=== PATIENT | female | born 2000 | race Two or more races ===

== ENCOUNTER 2022-07-19 12:42 | Emergency (ER) | payer OTHER ==
[~2022-07-19] VITALS: Ht 170.2 cm; Wt 63.5 kg
[2022-07-19] MEDS ORDERED: HYDROXYCHLOROQ200 MG PO (13:24)
[2022-07-19] MEDS ORDERED: MYCOPHENOLATE500 MG PO (13:24)
[2022-07-19] MEDS ORDERED: RAYOS5 MG PO (13:25)
[2022-07-19] MEDS ORDERED: BENLYSTA200 MG/1 M SQ (13:25)
== END 2022-07-20 00:05 | disposition home or self-care (01) ==
LOC: ER 12:42
DX: M32.9 Systemic lupus erythematosus, unspecified (principal); B34.9 Viral infection, unspecified; Z20.822 Contact with and (suspected) exposure to COVID-19

== ENCOUNTER 2023-04-11 09:01 | Emergency (ER) | payer OTHER ==
[~2023-04-11] VITALS: Ht 170.2 cm; Wt 61.7 kg
[~2023-04-11 09:01] MED LIST: BENLYSTA200 MG/1 M SQ; HYDROXYCHLOROQ200 MG PO; MYCOPHENOLATE500 MG PO; RAYOS5 MG PO
== END 2023-04-11 12:27 | disposition home or self-care (01) ==
LOC: ER 09:02
DX: L27.2 Dermatitis due to ingested food (principal)

== ENCOUNTER 2023-06-21 16:46 | Emergency (ER) | payer OTHER ==
[~2023-06-21] VITALS: Ht 170.2 cm; Wt 61.2 kg
[2023-06-21 19:25] LABS: HEMATOCRIT 33.5 % (36.0-45.00); HEMOGLOBIN 11.2 g/dL (12.0-15.00); MEAN CELL VOLUME 86.8 fL (80.00-100.00); MEAN CORPUSCULAR HGB CONC 33.4 g/dl (32.0-36.0); PLATELET COUNT 375 K/uL (150-450); RED BLOOD COUNT 3.86 M/uL (4.00-6.00); RED CELL DISTRIBUTION WIDTH 18.3 % (11.5-14.5)
[2023-06-21 19:28] LABS: URINE APPEARANCE Clear; URINE BILIRRUBIN Negative (NEGATIVE); URINE BLOOD Negative; URINE COLOR Yellow; URINE GLUCOSE Negative (NEGATIVE); URINE LEUKOCYTE Moderate; URINE NITRATE Negative; URINE PROTEIN Trace (NEGATIVE)
[2023-06-21 19:29] LABS: URINE EPITHELIAL CELLS 22.8 uL (0.0-38.8); URINE RBC 10.2 uL (0.0-20.8); URINE WBC 322.9 uL (0.0-23.2)
[2023-06-21 19:40] LABS: ALBUMIN 3.6 gm/dL (3.4-5.0); BILIRUBIN TOTAL 0.32 mg/dL (0.3-1.2); CALCIUM 9.1 mg/dL (8.5-10.1); CREATININE SERUM 0.62 mg/dL (0.55-1.02); GFR 119.28; GLOBULINA 4.6 G/DL (2.4-3.5); POTASSIUM 3.94 mEq/L (3.5-5.1); TOTAL PROTEIN 8.2 gm/dL (6.4-8.2)
== END 2023-06-21 21:25 | disposition home or self-care (01) ==
LOC: ER 16:46
PROVIDERS: General Practice
DX: R55 Syncope and collapse (principal)

== ENCOUNTER 2023-07-30 14:03 | Inpatient (IN) | payer OTHER ==
[~2023-07-30] VITALS: Ht 152.4 cm; Wt 61.2 kg
[2023-07-30 16:22] LABS: PH,URINE 7.5 (5.0-8.0); URINE APPEARANCE Cloudy; URINE BILIRRUBIN Negative (NEGATIVE); URINE BLOOD Negative; URINE COLOR Yellow; URINE GLUCOSE Negative (NEGATIVE); URINE LEUKOCYTE Large; URINE NITRATE Negative
[2023-07-30 16:25] LABS: URINE BACTERIA 7150.2 uL (0.0-1933); URINE EPITHELIAL CELLS 48.5 uL (0.0-38.8); URINE RBC 55.1 uL (0.0-20.8)
[2023-07-30 16:26] LABS: HEMATOCRIT 34.6 % (36.0-45.00); HEMOGLOBIN 11.4 g/dL (12.0-15.00); MEAN CELL VOLUME 82.8 fL (80.00-100.00); MEAN CORPUSCULAR HEMOGLOBIN 27.3 pg (27.00-32.0); PLATELET COUNT 409 K/uL (150-450); RED BLOOD COUNT 4.18 M/uL (4.00-6.00); RED CELL DISTRIBUTION WIDTH 15.2 % (11.5-14.5)
[2023-07-30 16:35] LABS: CALCIUM 8.9 mg/dL (8.5-10.1); CREATININE SERUM 0.65 mg/dL (0.55-1.02); GFR 112.95
[2023-07-30 16:54] LABS: URINE PROTEIN 100 (NEGATIVE)
[2023-07-30 17:01] LABS: ERYTHROCYTE SEDIMENTATION RATE 80 mm/hr
[2023-07-31 01:15] LABS: LDH 197 U/L (84-246); PHOSPHOKINASE CREATININE 29 U/L (26-192)
[2023-07-31 06:06] LABS: HEMATOCRIT 32.5 % (36.0-45.00); HEMOGLOBIN 10.9 g/dL (12.0-15.00); MEAN CORPUSCULAR HEMOGLOBIN 28.1 pg (27.00-32.0); MEAN CORPUSCULAR HGB CONC 33.5 g/dl (32.0-36.0); PLATELET COUNT 343 K/uL (150-450); RED BLOOD COUNT 3.87 M/uL (4.00-6.00); RED CELL DISTRIBUTION WIDTH 14.8 % (11.5-14.5)
[2023-07-31 06:17] LABS: PARTIAL THROMBOPLASTIN TIME 28.4 SECONDS (22.0-34.0); PROTHROMBIN TIME 10.5 SECONDS (9.0-11.5)
[2023-07-31 06:27] LABS: ALBUMIN 3.1 gm/dL (3.4-5.0); ALKALINE PHOSPHATASE 70 U/L (50-136); ALT/SGPT 72 U/L (12-78); ANION GAP 8 (10.0-20.0); AST/SGOT 44 U/L (15-37); BILIRUBIN TOTAL 0.17 mg/dL (0.3-1.2); BILIRUBIN,CONJUGATED < 0.10 mg/dL (0.0-0.2); BILIRUBIN,UNCONJUGATED 0.07 mg/dL (0.0-0.6); BLOOD UREA NITROGEN 22 mg/dL (7-18); BUN CREA RATIO 32 (7.0-25.0); CALCIUM 8.7 mg/dL (8.5-10.1); CARBON DIOXIDE 26 mEq/L (21-32); CHLORIDE 107 mmol/L (98-107); CHOL HDL RATIO 5.2 (0-5.0); CHOLESTEROL 160 mg/dL (0-200); CREATININE SERUM 0.69 mg/dL (0.55-1.02); GFR 105.43; GLOBULINA 4.2 G/DL (2.4-3.5); GLUCOSE FASTING 133 mg/dL (65-100); HDL 31 mg/dl (40-60); LDL 114 mg/dl (0-130); OSMOLALITY SERUM 277 MOSM/KG (275-295); POTASSIUM 4.72 mEq/L (3.5-5.1); SODIUM 136 mmol/L (136-145); TOTAL PROTEIN 7.3 gm/dL (6.4-8.2); TRIGLYCERIDES 77 mg/dL (0-150); VLDL 15 (0-39)
[2023-07-31 06:32] LABS: C-REACTIVE PROTEIN 3.44 MG/DL (0.00-0.29)
[2023-07-31 12:57] LABS: URINE APPEARANCE Cloudy; URINE BILIRRUBIN Negative (NEGATIVE); URINE BLOOD Negative; URINE COLOR Yellow; URINE GLUCOSE Negative (NEGATIVE); URINE LEUKOCYTE Large; URINE NITRATE Negative; URINE PROTEIN Negative (NEGATIVE)
[2023-07-31 13:00] LABS: URINE BACTERIA 3639.9 uL (0.0-1933); URINE EPITHELIAL CELLS 168.8 uL (0.0-38.8); URINE RBC 2.5 uL (0.0-20.8); URINE WBC 161.5 uL (0.0-23.2)
[2023-07-31 13:20] LABS: LDH 209 U/L (84-246); PHOSPHOKINASE CREATININE 31 U/L (26-192)
[2023-07-31 22:14] LABS: LDH 201 U/L (84-246); PHOSPHOKINASE CREATININE 41 U/L (26-192)
[2023-08-04 06:08] LABS: HEMATOCRIT 32.1 % (36.0-45.00); HEMOGLOBIN 10.8 g/dL (12.0-15.00); MEAN CELL VOLUME 83.5 fL (80.00-100.00); MEAN CORPUSCULAR HEMOGLOBIN 27.9 pg (27.00-32.0); MEAN CORPUSCULAR HGB CONC 33.5 g/dl (32.0-36.0); PLATELET COUNT 341 K/uL (150-450); RED BLOOD COUNT 3.85 M/uL (4.00-6.00); RED CELL DISTRIBUTION WIDTH 14.8 % (11.5-14.5)
== END 2023-08-04 16:05 | disposition home or self-care (01) | DRG 690 ==
LOC: ER 14:03 → SEC-K 23:03 → MEDJ 23:03
PROVIDERS: General Practice; Nurse Practitioner Family; ADMIT Internal Medicine; ATTEND Internal Medicine
PROC: BW21ZZZ Computerized Tomography (CT Scan) of Abdomen and Pelvis (ICD-10-PCS; principal; 2023-07-30)
DX: N39.0 Urinary tract infection, site not specified (principal); M32.9 Systemic lupus erythematosus, unspecified

== ENCOUNTER 2023-10-12 14:27 | Emergency (ER) | payer OTHER ==
[~2023-10-12] VITALS: Ht 170.2 cm; Wt 58.5 kg
[2023-10-12] MEDS ORDERED: FAMOTIDINE/PF 20 MG/2 ML VIAL IV ONE (15:15)
[2023-10-12] MEDS ORDERED: ONDANSETRON HCL 2 MG/ML VIAL IV ONE (15:15)
[2023-10-12 15:38] LABS: HEMATOCRIT 33.2 % (36.0-45.00); HEMOGLOBIN 11.1 g/dL (12.0-15.00); MEAN CELL VOLUME 73.4 fL (80.00-100.00); MEAN CORPUSCULAR HEMOGLOBIN 24.5 pg (27.00-32.0); MEAN CORPUSCULAR HGB CONC 33.4 g/dl (32.0-36.0); PLATELET COUNT 441 K/uL (150-450); RED BLOOD COUNT 4.53 M/uL (4.00-6.00); RED CELL DISTRIBUTION WIDTH 15.8 % (11.5-14.5)
[2023-10-12 15:50] LABS: PH,URINE 6.5 (5.0-8.0); URINE APPEARANCE Cloudy; URINE BILIRRUBIN Negative (NEGATIVE); URINE BLOOD Moderate; URINE COLOR Yellow; URINE GLUCOSE Negative (NEGATIVE); URINE LEUKOCYTE Trace; URINE NITRATE Negative
[2023-10-12 15:51] LABS: CALCIUM 9.2 mg/dL (8.5-10.1); CREATININE SERUM 0.82 mg/dL (0.55-1.02); GFR 86.39; POTASSIUM 3.99 mEq/L (3.5-5.1)
[2023-10-12 15:51] LABS: URINE BACTERIA 762.2 uL (0.0-1933); URINE EPITHELIAL CELLS 13.2 uL (0.0-38.8); URINE RBC 66.8 uL (0.0-20.8); URINE WBC 7.7 uL (0.0-23.2)
[2023-10-12 16:07] LABS: URINE PROTEIN 100 (NEGATIVE)
[2023-10-12] MEDS ORDERED: 0.9 % SODIUM CHLORIDE 500 ML IV ONE (17:15)
[2023-10-12] MEDS ORDERED: PEPCID AC20 MG PO (20:56)
[2023-10-12] MEDS ORDERED: ONDANSETRON HCL4 MG PO (20:56)
[2023-10-12] MEDS ORDERED: KETOROLAC TROMETHAMINE 15 MG VIAL IV ONE (21:15)
== END 2023-10-12 21:21 ==
LOC: ER 14:27
PROVIDERS: Nurse Practitioner Family
DX: R10.12 Left upper quadrant pain (principal); R10.32 Left lower quadrant pain